=== PATIENT | female | born 1975 | race Caucasian/White ===

== ENCOUNTER 2017-01-02 23:04 | Emergency (ER) | payer MEDICARE, OTHER ==
[2017-01-02 23:59] LABS: HEMOGLOBIN 12.8 gm/dl (12.3-15.3); RED BLOOD COUNT 4.24 M/UL (4.00-5.10); WHITE BLOOD COUNT 11.3 K/UL (4.5-11.0)
[2017-01-03 00:20] LABS: BUN/CREATININE RATIO 13 (0-10)
== END 2017-01-03 07:46 | disposition home or self-care (01) ==
LOC: ER1 23:04
PROVIDERS: Student in an Organized Health Care Education/Training Program
DX: L02.32 Furuncle of buttock (principal); N30.01 Acute cystitis with hematuria; N83.201 Unspecified ovarian cyst, right side; E87.6 Hypokalemia; E11.9 Type 2 diabetes mellitus without complications; E03.9 Hypothyroidism, unspecified; I10 Essential (primary) hypertension; I48.91 Unspecified atrial fibrillation; Z79.82 Long term (current) use of aspirin; Z79.899 Other long term (current) drug therapy; Z79.4 Long term (current) use of insulin
CPT/HCPCS: 10061; 36415; 80053; 81001; 83605; 84703; 85025; 87040; 87070; 87077; 87086; 87186; 87205; 93005; 96365; 96366; 96367; 96375; 99284; J2270; J2405; J2543; J3370; J7050; Q9962